=== PATIENT | female | born 1960 | race Caucasian/White ===

== ENCOUNTER → 2016-04-09 | Outpatient (CLI) | payer MEDICARE ==
[2013-11-18 18:15] VITALS: BP 106/67
[~2016-04-09] MED LIST: AMIT25TA PO; ASPI325T4 PO; ATOR20TA58 PO; BACL20TA PO; BUPR150T6 PO; BUPR1PAT TD; CA C1TAB28 PO; CALC-450 PO; CARB200T PO; CYAN10005 PO; CYCL10TA2 PO; DIAZ5TAB PO; DICY10CA53 PO; ESOM40CA PO; FAMO-63 PO; FENT1PAT21 TD; FENT1PAT91 TD; FLUT16SP NS; FOLI1TAB35 PO; GABA-586 PO; GABA800T2 PO; HYOS0.1264 PO; IOHEXOL 180 MG/ML 10 ML VIAL. ONE; IPRA4AER IH; LEVO125T5 PO; LEVO75TA PO; LORA10TA68 PO; LUTE20TA PO; MAGN400T3 PO; METH10TA2 PO; METH12DI SQ; MONT10TA6 PO; NITR0.4T SL; OXYC10TA PO; OXYC20TA PO; OXYC30TA PO; OXYM10TA PO; OXYM10TA28 PO; OXYM15TA PO; PANT40TA5 PO; PARO10TA24 PO; PREG300C PO; PROM25AM6 IJ; QUET50TA5 PO; QUET50TA8 PO; RANI150C PO; RESV50CA PO; SUCR1TAB29 PO; TEMA30CA6 PO; TIZA4CAP3 PO; UBID400C3 PO; Vitamin D 3; ZOLP10TA PO; methylPREDNISolone ACETATE 40 MG/ML VIAL. ONE; methylPREDNISolone ACETATE 80 MG/ML VIAL. ONE
--- NOTE | 2016-04-10 19:40 | PAIN ---
DATE OF SERVICE: 04/09/2016 DIAGNOSES: 1. Cervical radiculopathy with cervical degenerative disk disease. 2. Complex regional pain syndrome type 1, left lower extremity. 3. Lumbar radiculopathy. HISTORY OF PRESENT ILLNESS: The patient is a 56-year-old female who returns for followup status post medication management with both methadone and oxycodone, also with a spinal cord stimulator for complex regional pain syndrome of left lower extremity, and also for recent evaluation of cervicalgia and cervical radiculopathy in bilateral upper extremities, right greater than left. The patient reports that she did have a CT scan and indeed the results have shown significant degenerative disk disease at multiple levels in the cervical spine, mostly in the middle and lower distribution with some significant radiation of pain in upper extremities, again more on the right than the left, within the base of the neck, upper back, right posterior shoulder, left posterior shoulder, upper extremities, some weakness in the right hand and tingling in both hands and numbness. The patient reports she had been dropping items by both her hands, mostly with the right. ____ pain is rated anywhere from 4 to 7 on a scale of 10 in the neck and shoulders and upper extremities. The patient's lower extremities have been doing better. The patient reports that the stimulator is covering her left lower extremity in the leg and foot with good coverage and approximately 70-75% improvement in this region. The patient reports no new motor or sensory deficits, no new bowel or bladder incontinence or other complaints. PHYSICAL EXAMINATION: VITAL SIGNS: The patient's blood pressure is 138/82, pulse 78, respirations 18, temperature 98.1 degrees Fahrenheit, height is 5 feet 2 inches, weight is 209 pounds. GENERAL: The patient is awake, alert, oriented, appropriate, very pleasant demeanor. HEENT: Shows normocephalic, atraumatic. Extraocular movements are intact and symmetrical. Oral cavity shows mucous membranes are moist and pink. Dentition is intact. NECK: Shows anterior throat supple. CHEST: Shows normal on inspection. Breath sounds are clear to auscultation bilaterally. HEART: Shows S1 and S2 clear. ABDOMEN: Obese, soft, nontender, nondistended. No palpable organomegaly is noted. No rebound or guarding demonstrated. BACK: Shows spine grossly in midline. Well-healed surgical scarring is noted with spinal cord stimulator easily palpable over the right gluteus without tenderness. The patient's neck shows inferior aspect of the cervical paraspinous musculature with some moderate tenderness with palpation and significant sore and tender paraspinous musculature in the thoracic distribution in the upper, middle distribution and in the rhomboid musculature as well; very firm, very tender without specific trigger points or asymmetry, but very firm and tender with increased muscle girth bilaterally. EXTREMITIES: Upper extremities show deep tendon reflexes at 2+ in the biceps and triceps tendons. Motor exam is approximately 4 on a scale of 5 with linotype operator strength on the right and 5/5 on the left. Bicep and tricep flexion is 4/5 and equal bilaterally. Options were discussed with the patient. The patient's old chart was reviewed as her current medication regimen and updated. Current review of systems updated today as well. We will proceed with a cervical epidural steroid injection today with fluoroscopic guidance. Risks were again discussed including, but not limited to bleeding, infection, possibility of epidural hematoma and subsequent neurological compromise, dural puncture, headaches, spinal cord and/or nerve damage, side effects of steroid medication and poor results regarding pain control. The patient understands and wishes to proceed. The patient also given refill prescription for oxycodone 10 mg and was given instruction as well as side effects to be aware of with the medication, also with the procedure today. We discussed the potential side effects following and warning signs to look for in case of epidural hematoma, etc. The patient will return to clinic in approximately 6 weeks as scheduled for routine followup and reassessment at that time. The patient was counseled as to her medications and activity level as well as side effects to be aware of. DIAGNOSIS: Cervical radiculopathy with cervical degenerative disk disease. PROCEDURE: Cervical epidural steroid injection using C-arm fluoroscopic guidance in translaminar approach at the C6-C7 level with local anesthetic. Medications injected 120 mg of Depo-Medrol 120 mg plus 5 mL of preservative-free normal saline and 2 mL of Isovue contrast. CONDITION AT DISCHARGE: Stable. The patient tolerated the procedure well, had no complications. KENY MCCLENDON MD DR: GREG/arymon JOB#: [id number] / [id number]
== END | disposition home or self-care (01) ==
LOC: PNCL 13:55
PROVIDERS: ATTEND Anesthesiology
DX: M50.123 Cervical disc disorder at C6-C7 level with radiculopathy (principal); M79.605 Pain in left leg; M54.16 Radiculopathy, lumbar region; J44.9 Chronic obstructive pulmonary disease, unspecified; Z90.49 Acquired absence of other specified parts of digestive tract; E66.9 Obesity, unspecified; Z90.710 Acquired absence of both cervix and uterus; E03.9 Hypothyroidism, unspecified; F32.9 Major depressive disorder, single episode, unspecified; F17.200 Nicotine dependence, unspecified, uncomplicated
CPT/HCPCS: 62321; J1030; J1040

== ENCOUNTER → 2016-05-20 | Outpatient (CLI) | payer MEDICARE ==
[2013-11-18 18:15] VITALS: BP 106/67
[~2016-05-20] MED LIST changes: -IOHEXOL 180 MG/ML 10 ML VIAL. ONE; -methylPREDNISolone ACETATE 40 MG/ML VIAL. ONE; -methylPREDNISolone ACETATE 80 MG/ML VIAL. ONE
--- NOTE | 2016-05-21 05:01 | PAIN ---
DATE OF SERVICE: 05/20/2016 PROGRESS NOTE DIAGNOSES: 1. Complex regional pain syndrome type 1, left lower extremity. 2. Cervical radiculopathy with cervical degenerative disk disease. 3. Lumbar radiculopathy. HISTORY OF PRESENT ILLNESS: The patient is a 56-year-old female who returns for followup status post medication management with both methadone and oxycodone as well as Lyrica and Lidoderm patches. The patient returns reporting she is doing fairly well with about 75% improvement with the medications. She did undergo a cervical epidural steroid injection after the last visit and reports significant pain relief about 80% for about 2 weeks, and the pain returned in the base of the neck and shoulders. The patient reports still some significant pain in the left leg and foot as she has had previously, although her stimulator is working quite well. She is very pleased with it with about 50% improvement in the left foot and leg pain from her complex regional pain syndrome. The patient reports her pain is anywhere from 3-7 on a scale of 10, 7 in the low back, 5-7 in the neck, and 3-4 in the left leg. The patient reports no new motor or sensory deficits, no new bowel or bladder incontinence or other complaints. She is doing well with her medications. No significant side effects with methadone or oxycodone. She is using them very sparingly and does not require refills of the oxycodone today, just the methadone. The patient has had appropriate K-TRACS reporting to date and appropriate urinalysis to date as well. PHYSICAL EXAMINATION: VITAL SIGNS: The patient's blood pressure is 107/64, pulse 73, respirations 18, temperature 98.0 degrees Fahrenheit, weight is 202 pounds. GENERAL: The patient is awake, alert, oriented, appropriate, has a very pleasant demeanor. HEENT: Head shows normocephalic, atraumatic. Extraocular movements are intact and symmetrical. Oral cavity, mucous membranes are moist and pink. Dentition is intact. NECK: Shows anterior throat supple without palpable lymphadenopathy noted. Swallow reflex is symmetrical. CHEST: Normal on inspection. Breath sounds are clear to auscultation bilaterally. HEART: Shows S1 and S2 clear. ABDOMEN: Soft, obese, nontender, nondistended. No palpable organomegaly is noted. No rebound or guarding demonstrated. BACK: The patient's back shows spine grossly in midline. Slight exaggeration of thoracic kyphosis and mild flattening of lumbar lordotic curvature. Previous surgical scars noted from stimulator placement. Spinal cord stimulator battery is easily palpable over the right gluteus and nontender. The patient's lower extremities show left leg with significant scarring over the anterior aspect of the foot and ankle with some mild bluish discoloration today, but very mild in affect compared to previous exams and is warm to touch compared to the right leg without significant edema, no specific allodynia except over the very superior aspect of the anterior foot at the junction of the ankle anteriorly only. Peripheral pulses are 2+ in the posterior tibial and dorsalis pedis pulses bilaterally. Options were discussed with the patient. The patient's old chart was reviewed and her current medication regimen updated. Current review of systems updated today as well, and we will refill patient's methadone; instructions, side effects to be aware of. The patient will follow up in approximately 2 months as scheduled. She will be eligible for refill on her oxycodone at that time; she is using it again only very sparingly. The patient will maintain stimulation with her spinal cord stimulator and battery charge on this as well. We discussed potential interventional techniques with her back and neck, and she would like to wait on this. We will try Medrol Dosepak in the meantime with instructions, side effects to be aware of discussed as well. The patient will follow up as scheduled. KENY MCCLENDON MD DR: GREG/raymon JOB#: [id number] / [id number]
== END | disposition home or self-care (01) ==
LOC: PNCL 13:06
PROVIDERS: ATTEND Anesthesiology
DX: G90.522 Complex regional pain syndrome I of left lower limb (principal); M54.16 Radiculopathy, lumbar region; M54.12 Radiculopathy, cervical region
CPT/HCPCS: G0463

== ENCOUNTER → 2016-06-30 | Outpatient (CLI) | payer MEDICARE ==
[2013-11-18 18:15] VITALS: BP 106/67
[~2016-06-30] MED LIST changes: +CETI10TA22 PO; +ESCI10TA PO; +IOHEXOL 180 MG/ML 10 ML VIAL. ONE; +TRAM50TA PO; +methylPREDNISolone ACETATE 40 MG/ML VIAL. ONE; +methylPREDNISolone ACETATE 80 MG/ML VIAL. ONE
--- NOTE | 2016-07-01 03:53 | PAIN ---
DATE OF SERVICE: 06/30/2016 PROGRESS NOTE FOR PAIN CLINIC DIAGNOSES: 1. Complex regional pain syndrome type 1, left lower extremity. 2. Cervical radiculopathy with cervical degenerative disk disease. 3. Lumbar radiculopathy. HISTORY OF PRESENT ILLNESS: This is a 56-year-old female who returns for followup status post cervical epidural steroid injection in April this year, also with spinal cord stimulator for her left lower extremity complex regional pain syndrome. The patient reports the stimulator is doing fairly well with the leg, but is wondering if it can be adjusted to cover some of the low back, as she has some pain there also with her radicular qualities and the low back pain. We will contact [facility] and help her arrange this. Otherwise, the patient reports some increase in pain in the base of the neck and right upper extremity. She has had previously did very well after cervical injection in April this year. The pain is now returning in the base of the neck, right shoulder, right upper extremity with some radiating shooting pain, tingling, burning and stabbing in the right arm as well. The patient reports that her left foot; however, is doing much better. It is fairly stable, it is not turning purple as often, although it still does this with cooler temperatures, which we have had some recently in the weather, but otherwise she is doing fairly well with it. Still using wheelchair for most of her longer traveling and is in a wheelchair again today. PHYSICAL EXAMINATION: VITAL SIGNS: The patient's blood pressure 126/82, pulse 81, respirations are 20, temperature 97.6 Fahrenheit, height is 5 feet 3 inches, weight 201 pounds. GENERAL: The patient is awake, alert, oriented, appropriate, very pleasant demeanor. HEENT: Head shows normocephalic, atraumatic. Extraocular movements are intact, symmetrical. Oral cavity, mucous membranes are moist and pink. Dentition is intact. NECK: Shows anterior throat supple without palpable lymphadenopathy noted. Swallow reflex is symmetrical. Neck shows full rotational motion with some minor tenderness in the right anterior aspect of the neck and trapezius with extension, but not with forward flexion. CHEST: Shows normal on inspection. Breath sounds are clear to auscultation bilaterally. HEART: Shows S1 and S2 clear. ABDOMEN: Soft, nontender, nondistended. No palpable organomegaly. No rebound or guarding demonstrated. BACK: The patient's back shows spine grossly in the midline. Some mild flattening of lumbar lordotic curvature and some moderate tenderness with palpation throughout the lumbar paraspinous muscles. Cervical paraspinous muscle shows symmetrical with inspection. On palpation, it is mildly tender to palpation, more on the right than the left superior medial and lateral trapezius, but without atrophy, hypertrophy. The patient shows good rotational motion of cervical spine including extension and flexion with some minor tenderness with extension again only on the right side of the inferior aspect of the cervical spine and shoulder. EXTREMITIES: The patient's upper extremities show deep tendon reflexes 2+ in the biceps and triceps tendons. Motor exam is strong with supervisor sound technician strength rated at 5/5 as is biceps and triceps flexion. Options were discussed with the patient. The patient's old chart was reviewed as her current medication regimen updated. Current review of systems updated today as well. We will proceed with a second cervical epidural steroid injection today with fluoroscopic guidance. Risks were again discussed including, but not limited to bleeding, infection, possibility of epidural hematoma and subsequent neurologic compromise, dural puncture, headaches, spinal cord and/or nerve damage, side effects of steroid medication and poor results regarding pain control. The patient understands and wishes to proceed. The patient will return to clinic in approximately 2 weeks for followup. She was counseled as to return appointment, activity level and side effects to be aware of. The patient also was questioning with her methadone and oxycodone, as she seems to be developing some physiologic tolerance to the medications. We discussed this in some detail today and we will change it to Opana IR at 15 mg every 12 h. and will substitute tramadol for the oxycodone at 15 mg every 4-6 hours on a p.r.n. basis. The patient was given instruction as well as side effects to be aware of each of the medications. Also once again we will contact the [facility] for help in reprogramming and reassessing her spinal cord stimulator in the meantime as well. The patient will follow up in approximately 4 weeks or sooner if necessary, was counseled as to activity levels as well as side effects to be aware of. DIAGNOSIS: Cervical radiculopathy with cervical degenerative disk disease. PROCEDURE: Cervical epidural steroid injection in translaminar approach at the C6-C7 level using C-arm fluoroscopic guidance under sterile prep and drape using local anesthetic. MEDICATION INJECTED: 120 of mg Depo-Medrol plus 5 mL of preservative-free normal saline and 2 mL of Isovue contrast. CONDITION AT DISCHARGE: Stable. The patient tolerated the procedure well, had no complications. KENY MCCLENDON MD DR: GREG/raymon JOB#: [id number] / [id number]
== END | disposition home or self-care (01) ==
LOC: PNCL 11:15
PROVIDERS: ATTEND Anesthesiology
DX: M50.123 Cervical disc disorder at C6-C7 level with radiculopathy (principal); J44.9 Chronic obstructive pulmonary disease, unspecified; E66.9 Obesity, unspecified; E03.9 Hypothyroidism, unspecified; F32.9 Major depressive disorder, single episode, unspecified; Z72.0 Tobacco use; Z98.51 Tubal ligation status; Z90.49 Acquired absence of other specified parts of digestive tract; Z90.710 Acquired absence of both cervix and uterus
CPT/HCPCS: 62321; J1030; J1040

== ENCOUNTER → 2016-08-12 | Outpatient (CLI) | payer MEDICARE ==
[2013-11-18 18:15] VITALS: BP 106/67
[~2016-08-12] MED LIST changes: -ASPI325T4 PO; +ASPI325T8 PO; -BUPR1PAT TD; +BUPR1PAT7 TD; -ESCI10TA PO; +ESCITALOPRAM OX10 MG PO; -IOHEXOL 180 MG/ML 10 ML VIAL. ONE; -PARO10TA24 PO; +PARO10TA57 PO; -SUCR1TAB29 PO; +SUCR1TAB35 PO; -methylPREDNISolone ACETATE 40 MG/ML VIAL. ONE; -methylPREDNISolone ACETATE 80 MG/ML VIAL. ONE
--- NOTE | 2016-08-13 02:12 | PAIN ---
DATE OF SERVICE: 08/12/2016 DIAGNOSES: 1. Complex regional pain syndrome type 1, left lower extremity. 2. Cervical radiculopathy with cervical degenerative disk disease. 3. Lumbar radiculopathy. HISTORY OF PRESENT ILLNESS: The patient is a 56-year-old female who returns for followup status post medication management with both methadone and Opana. The patient discontinued her pain Opana as she reports she is no longer wishing to take this. She is having some difficulty with controlling her pain and finds that the methadone does work better and continues to take it. The patient is taking oxycodone, but only very sparingly, also taking Lyrica for pain and has been trying to decrease her narcotic consumption and we have been trying to help her with this, but she is still having significant pain in her left lower extremity as well as in her neck and shoulders. She did do well after cervical epidural steroid injection, which was 06/30/2016, for about 3 weeks with decreased pain significantly in the neck and shoulders as well as her upper extremities. The patient reports the pain is returning now, but not quite to its baseline level. The patient reports no new motor or sensory deficits, no new bowel or bladder incontinence or other complaints. Reports the pain she is having is tingling, burning, stabbing, shooting, sharp, aching, radiating, constant, it can be severe and unbearable, mostly in the left leg, but also in the base of the neck and shoulders, but again is better after last injection. The patient reports her pain as a 9 on a scale of 10 at its worse, is a 4 scale of 10 at least. She has been on a very stable regimen for medication thus far. The patient reports she does have difficulty sleeping at night because of the left leg, although better than it was. She says she has to reposition through the night several times. PHYSICAL EXAMINATION: VITAL SIGNS: The patient's blood pressure 121/69, pulse 71, respirations 18, temperature 98.1 degrees Fahrenheit. Weight is 204 pounds. GENERAL: The patient is awake, alert, oriented, appropriate, very pleasant demeanor. HEENT: Head shows normocephalic, atraumatic. Extraocular movements are intact and symmetrical. Oral cavity shows mucous membranes are moist and pink. Dentition is intact. NECK: Shows anterior throat supple without palpable lymphadenopathy noted. Swallow reflex is symmetrical. CHEST: Shows normal on inspection. Breath sounds are clear to auscultation bilaterally. HEART: Shows S1 and S2 clear. ABDOMEN: Soft, nontender, nondistended. No palpable organomegaly noted. No rebound or guarding demonstrated. BACK: Shows spine grossly midline. Slight exaggeration of thoracic kyphosis and mild flattening of lumbar lordotic curvature. Lumbar paraspinous musculature shows only very mild tenderness to palpation. Cervical paraspinous muscle shows moderate tenderness with deep palpation in the inferior aspect of the cervical paraspinous muscles as well as superior medial trapezius with palpation slightly more tender on the right than the left, but is roughly symmetrical. The patient shows good rotational motion of cervical spine with mild tenderness with extension, but not with forward flexion or right and left lateral rotation. EXTREMITIES: Upper extremities showed deep tendon reflexes at 2+ in the biceps and triceps tendons. Reports Developer strength is strong with 5/5 padder cushion as well as biceps and triceps flexion and are symmetrical. Lower extremities shows left lower extremity with good ____ symmetrical and equal to the right leg without as much bluish discoloration as has been present on previous exam. Well-healed surgical scar is noted on the anterior aspect of the top of the foot. There is some mild edema on the left ankle only, but no pitting and is moderately tender even to light touch. There was some very mild allodynia noted on the top of the foot, but good dorsiflexion and extension, which is somewhat guarded, but intact. The patient reports only mild pain with performing this and she is using a wheelchair again today. Options were discussed with the patient and the patient's old chart was reviewed as her current medication regimen and updated. Current review of systems updated today as well and will be due for refill of methadone in approximately 3 weeks as well as Lyrica and we will continue with decreasing her oxycodone requirements daily as possible. Again, the patient has been on a very stable regimen, has had appropriate K-TRACS reporting to date and appropriate urinalysis to date as well. We will have her follow up in approximately 3 weeks. ____ once again she brought back her Opana extended release prescription as she did not fill it and we will discard it for her and continue working on decreasing her narcotic requirements as time goes. KENY MCCLENDON MD DR: Rula JOB#: [id number] / [id number]
== END | disposition home or self-care (01) ==
LOC: PNCL 11:12
PROVIDERS: ATTEND Anesthesiology
DX: G90.522 Complex regional pain syndrome I of left lower limb (principal); M50.10 Cervical disc disorder with radiculopathy, unspecified cervical region
CPT/HCPCS: G0463

== ENCOUNTER → 2016-09-11 | Outpatient (CLI) | payer OTHER, MEDICARE ==
[2013-11-18 18:15] VITALS: BP 106/67
[~2016-09-11] MED LIST changes: +IOHEXOL 180 MG/ML 10 ML VIAL. ONE; +methylPREDNISolone ACETATE 40 MG/ML VIAL. ONE; +methylPREDNISolone ACETATE 80 MG/ML VIAL. ONE
== END | disposition home or self-care (01) ==
LOC: PNCL 11:42
PROVIDERS: ATTEND Anesthesiology
DX: M50.10 Cervical disc disorder with radiculopathy, unspecified cervical region (principal); J44.9 Chronic obstructive pulmonary disease, unspecified; E66.9 Obesity, unspecified; F41.9 Anxiety disorder, unspecified; E03.9 Hypothyroidism, unspecified; Z68.43 Body mass index [BMI] 50.0-59.9, adult; Z86.69 Personal history of other diseases of the nervous system and sense organs; Z90.49 Acquired absence of other specified parts of digestive tract; Z98.51 Tubal ligation status; Z90.710 Acquired absence of both cervix and uterus; Z87.39 Personal history of other diseases of the musculoskeletal system and connective tissue; Z86.39 Personal history of other endocrine, nutritional and metabolic disease; Z72.0 Tobacco use; Z88.1 Allergy status to other antibiotic agents; Z88.0 Allergy status to penicillin
CPT/HCPCS: 62321; J1030; J1040

== ENCOUNTER → 2016-11-06 | Outpatient (CLI) | payer OTHER, MEDICARE ==
[2013-11-18 18:15] VITALS: BP 106/67
[~2016-11-06] MED LIST changes: -IOHEXOL 180 MG/ML 10 ML VIAL. ONE; -methylPREDNISolone ACETATE 40 MG/ML VIAL. ONE; -methylPREDNISolone ACETATE 80 MG/ML VIAL. ONE
--- NOTE | 2016-11-06 21:43 | PAIN ---
DATE OF SERVICE: 11/06/2016 PROGRESS NOTE DIAGNOSES: 1. Complex regional pain syndrome type 1, left lower extremity. 2. Cervical radiculopathy with cervical degenerative disk disease. HISTORY OF PRESENT ILLNESS: The patient is a 56-year-old female who returns for followup status post medication management with both methadone and tramadol, also baclofen. The patient reports she has been doing fairly well at this visit, was trying to get off methadone, we have weaning her down to some extent, which she is taking only 1-2 a day now, would like to try weaning further, taking the tramadol up to 3-4 times a day, which does help take the edge off. She has had no side effects from either one of the medications, but would like to very much get off methadone if possible. The patient reports still significant pain in the base of the neck, upper back, mid back, low back, right hip and left lower extremity. The patient with spinal cord stimulator for her complex regional pain syndrome in the left leg with very good results of this. The patient reports she is no longer having difficulty charging the battery and has good coverage in the left leg. She reports the pain in the base of the neck and shoulders, aching, sharp, shooting, stabbing, burning, tingling, severe, constant, radiating, unbearable, rates a 10 on a scale of 10 at its worst, 3 at its least and 4 on a scale of 10 today and on average. The patient reports no new motor or sensory deficits, no new bowel or bladder incontinence or other complaints. PHYSICAL EXAMINATION: VITAL SIGNS: Blood pressure 116/75, pulse 77, respirations 20, temperature 98.2 degrees Fahrenheit, weighs 199 pounds. GENERAL: The patient is awake, alert, oriented, appropriate, very pleasant demeanor. HEENT: Shows normocephalic, atraumatic. Extraocular movements are intact and symmetrical. Oral cavity shows mucous membranes moist and pink. Dentition is intact. NECK: Shows anterior throat supple without palpable lymphadenopathy noted. Swallow reflex is symmetrical. CHEST: Shows normal on inspection. Breath sounds are clear to auscultation bilaterally. HEART: Shows S1, S2 clear. ABDOMEN: Obese, soft, nontender, nondistended. No palpable organomegaly is noted. No rebound or guarding demonstrated. BACK: Shows spine grossly in midline with normal thoracic kyphosis and some mild flattening of lumbar lordotic curvature. The patient has well-healed surgical scarring noted in the lumbar distribution and easily palpable spinal cord stimulator over the right gluteus. Lower extremities show deep tendon reflexes at 1+ in the patellar and tendo calcaneus tendons. The patient has well-healed surgical scar over the anterior aspect of the left foot with some mild mottling noted today, but significant purple discoloration. Foot is warm to the touch compared to the right. The patient is not wearing any shoes and socks as she is more comfortable without these, but it is pink and warm without significant allodynia, only for some very mild allodynia on the anterior surface of the foot near the scar. Peripheral pulses are 2+ at the posterior tibial and dorsalis pedis pulses bilaterally. No peripheral edema is noted. PLAN: Options were discussed with the patient. The patient's old chart was reviewed as her current medication regimen and updated. Current review of systems updated today as well. We will refill the patient's tramadol, but we will change the methadone to oxycodone at 20 mg as she is breaking these in half. We will try this first as she did have some nausea when we have used this in the past; however, we would like to try this again as she is getting some better analgesia and again would like to get away from methadone. Also substitute Zanaflex in place of the baclofen. The patient was given instructions as well as side effects to be aware of each of the medications as well as maintenance with her spinal cord stimulator and will follow up in approximately 4 weeks or sooner if necessary. KENY MCCLENDON MD DR: GREG/raymon JOB#: [id number] / [id number]
== END | disposition home or self-care (01) ==
LOC: PNCL 11:40
PROVIDERS: ATTEND Anesthesiology
DX: M50.10 Cervical disc disorder with radiculopathy, unspecified cervical region (principal); G90.522 Complex regional pain syndrome I of left lower limb
CPT/HCPCS: G0463

== ENCOUNTER → 2017-03-25 | Outpatient (CLI) | payer OTHER, MEDICARE | END | disposition home or self-care (01) | LOC: PNCL 13:02 | DX: M54.12 Radiculopathy, cervical region (principal); M54.16 Radiculopathy, lumbar region; G90.522 Complex regional pain syndrome I of left lower limb; M79.672 Pain in left foot; M25.511 Pain in right shoulder | CPT/HCPCS: 99212 ==

== ENCOUNTER → 2017-06-04 | Outpatient (CLI) | payer OTHER, MEDICARE | END | disposition home or self-care (01) | LOC: PNCL 11:31 | DX: M50.10 Cervical disc disorder with radiculopathy, unspecified cervical region (principal); G90.522 Complex regional pain syndrome I of left lower limb | CPT/HCPCS: 99212 ==

== ENCOUNTER → 2017-09-07 | Outpatient (CLI) | payer OTHER, MEDICARE | END | disposition home or self-care (01) | LOC: PNCL 11:33 | DX: M50.10 Cervical disc disorder with radiculopathy, unspecified cervical region (principal); G90.522 Complex regional pain syndrome I of left lower limb; J44.9 Chronic obstructive pulmonary disease, unspecified; E03.9 Hypothyroidism, unspecified | CPT/HCPCS: 99212 ==

== ENCOUNTER → 2017-12-21 | Outpatient (CLI) | payer OTHER, MEDICARE ==
[2013-11-18 18:15] VITALS: BP 106/67
[~2017-12-21] MED LIST changes: +BUPR200T2 PO; +LEVO5TAB29 PO; +NAPR220C4 PO
--- NOTE | 2017-12-21 23:14 | PAIN ---
DATE OF SERVICE: 12/21/2017 PROGRESS NOTE FOR PAIN CLINIC DIAGNOSES: 1. Complex regional pain syndrome type 1, left lower extremity. 2. Cervical radiculopathy with cervical degenerative disk disease. 3. Lumbar radiculopathy. HISTORY OF PRESENT ILLNESS: The patient is a 57-year-old female who returns for followup status post medication management with both methadone and tramadol and also taking Zanaflex and Lyrica. The patient also with a spinal cord stimulator for her complex regional pain syndrome in the left leg. The patient reports it is working about 85%-90% of the pain in her foot as being decreased from the spinal cord stimulation, however. Since the weather has gotten slightly cooler in the last few weeks, she has had increased burning pain in her lower extremity as well. The patient does have an appointment to follow up with her spinal cord stimulator airline security representative to have it reprogrammed here within the next week or two. The patient reports her pain is a 10 on a scale of 10 at its worst, average and at its least and is a 10 on scale of 10 today, sharp, shooting, tingling, burning, cramping, stabbing, radiating, constant, becoming more severe, more unbearable, worse with weightbearing, standing, walking especially with her left leg and foot but again at rest, the stimulator is taking care of most pain about 90%. The patient had some family issues, was unable to return for her refill by about 1 week and she has been out of her methadone, still taking the tramadol, so she has had no withdrawal but has had significantly increased pain in the last week secondary to this. The patient reports no side effects with the medication and no new motor or sensory deficits or other complaints. PHYSICAL EXAMINATION: VITAL SIGNS: The patient's blood pressure 136/78, pulse 103, respirations 18, temperature 98.2 degrees Fahrenheit, height 5 feet 3 inches and weight is 190 pounds. GENERAL: The patient is awake, alert, oriented, appropriate and very pleasant demeanor. HEENT: Head is normocephalic and atraumatic. Extraocular movements are intact and symmetrical. Oral cavity: Mucous membranes moist and pink. Dentition is intact. NECK: Shows anterior throat supple without palpable lymphadenopathy noted. Swallow reflex is symmetrical. CHEST: Shows normal on inspection. Breath sounds clear to auscultation bilaterally. No rales, rhonchi or wheezes. HEART: Shows S1 and S2 clear. ABDOMEN: Soft, obese, nontender and nondistended. No palpable organomegaly is noted. BACK: Shows spine grossly in the midline with some increased thoracic kyphosis. Minor flattening of the lumbar lordotic curvature. Paraspinous muscle shows symmetrical throughout the thoracic and lumbar distributions. With palpation shows some mild tenderness over the lumbar paraspinous musculature, mainly in the lower lumbar distribution, which is very firm and tight but without specific trigger points, without radiation. EXTREMITIES: The patient's lower extremities show deep tendon reflexes at 1+ in the patellar tendons bilaterally. The patient without shoes on her left foot. It is uncomfortable for her to wear these, has well-healed surgical scar on the anterior aspect of the ankle and compared to the right, does not show any specific discoloration. There is some minor allodynia on the anterior top of the foot as well but only very mild with light touch on the left side, right side is negative. The patient's feet are essentially same temperature to touch on exam today as she has no shoes on either foot. Options were discussed with the patient. The patient's old chart was reviewed as well as her current medication regimen updated. Current review of systems updated today as well. She is scheduled to meet with the spinal cord stimulator airline security representative for reprogramming within the next week or so and we will refill the patient's medications. She has had appropriate K-TRACS reporting as well as appropriate urinalysis to date. We will renew her narcotic contract today as well. The patient was given a copy of this as well and a 90-day supply of the methadone as well as tramadol, Zanaflex and Lyrica with instructions, side effects to be aware of discussed with each one of her medications. She will follow up as scheduled. KENY MCCLENDON MD DR: GREG/raymon JOB#: [id number] / [id number]
== END | disposition home or self-care (01) ==
LOC: PNCL 14:38
PROVIDERS: ATTEND Anesthesiology
DX: G90.522 Complex regional pain syndrome I of left lower limb (principal); M50.10 Cervical disc disorder with radiculopathy, unspecified cervical region
CPT/HCPCS: G0463

== ENCOUNTER → 2018-03-15 | Outpatient (CLI) | payer OTHER ==
[2013-11-18 18:15] VITALS: BP 106/67
[~2018-03-15] MED LIST changes: +CYAN-25 PO; -CYAN10005 PO; -GABA-586 PO; +GABA300C18 PO; -GABA800T2 PO; +GABA800T5 PO; +MONT10TA49 PO; -MONT10TA6 PO; -OXYC30TA PO; +OXYC30TA3 PO; -PANT40TA5 PO; +PANT40TA77 PO; -QUET50TA8 PO; +QUET50TA9 PO
--- NOTE | 2018-03-15 17:45 | PAIN ---
DATE OF SERVICE: 03/15/2018 DIAGNOSES: 1. Complex regional pain syndrome type 1, left lower extremity, with spinal cord stimulator therapy. 2. Lumbar radiculopathy. 3. Cervical radiculopathy with cervical degenerative disk disease. HISTORY OF PRESENT ILLNESS: The patient is a 57-year-old female who returns for followup status post spinal cord stimulator therapy as well as medication management with both methadone and tramadol. The patient reports she has been doing quite well, but on a stable regimen of this as patient is not opioid naive. She is doing quite well with the methadone 3 times a day, some days only twice a day, but days that she does needed 3 times a day, it does take care of the pain significantly. The patient reports about an 80% or better improvement with the methadone and she is having some significant increase in low back pain recently, but the left leg is doing better. The patient is scheduled for spinal cord stimulator reevaluation today as well and reprogramming, which will be performed by our [facility] today while she is at her visit as well. The patient reports the pain is in the low back, left lower extremity, left foot especially, aching, sharp, dull, tight, shooting, cramping, stabbing, tingling, burning, severe, unbearable at times, radiating, becoming more constant in the left leg and foot as well as the low back and mid back with some myofascial complaints here as well. The patient reports pain is an 8 on a scale of 10 at its worst, 8 on average, 5 at its least and is an 8 today. The patient reports no new motor or sensory deficits. No new bowel or bladder incontinence. The patient reports it does awaken her from sleep about every 3 hours or so at night in the low back, mainly more than the leg. PHYSICAL EXAMINATION: VITAL SIGNS: The patient's blood pressure is 135/79, pulse 99, respirations are 18, temperature 98.2 degrees Fahrenheit, height 5 feet 3 inches, weight is 203 pounds. GENERAL: The patient is awake, alert, oriented, appropriate, very pleasant demeanor. HEENT: Shows normocephalic, atraumatic. Extraocular movements are intact and symmetrical. Oral cavity: Mucous membranes moist and pink. Dentition is intact. NECK: Shows anterior throat supple without palpable lymphadenopathy noted. Swallow reflex is symmetrical. CHEST: Shows normal on inspection. Breath sounds are clear to auscultation bilaterally. HEART: Shows S1, S2 clear. No murmurs auscultated. ABDOMEN: Obese, soft, nontender, nondistended. No palpable organomegaly is noted. There is no rebound or guarding demonstrated. BACK: Shows spine grossly in the midline, slight exaggeration of thoracic kyphosis. Well-healed surgical scarring is noted in the lumbar distribution and spinal cord stimulator is easily palpable on the right posterior hip, which is nontender. Well-healed surgical scar is there as well. The patient shows good rotational motion of the lumbar spine. There is moderate tenderness at the superior aspect of the lumbar paraspinal as well as the mid to low thoracic paraspinous musculature, firm musculature, tender with palpation, but without specific trigger points or atrophy, hypertrophy and no radiation of pain. The patient has good rotational motion of lumbar spine, thoracic spine as well without significant difficulty. EXTREMITIES: The patient's lower extremities show left lower extremity compared to right. The patient is not wearing a sock or a shoe on the left foot, but is pink in color today consistent with right foot on comparison. Well-healed surgical scaring is noted on the anterior aspect of the top of the foot, still some allodynia with palpation over the anterior aspect as well as the lateral ankle on the left. The patient has new scarring on the left fifth toe and she reports about 2 months ago, she did stumble at home and broke her toe and also was lacerated which was repaired, but did exacerbate the pain in the foot significantly. Again, the patient will have spinal cord stimulator reprogramed today to try and cover this as well as some back pain. Options were discussed with the patient. The patient's old chart was reviewed as was her current medication regimen updated. Current review of systems is updated today as well. We will refill the patient's methadone as well as tramadol as the patient is not opioid na?ve and has done quite well with the methadone with 75%-80% improvement without any side effects. The patient will be given a 2-month refill. She has had appropriate K-TRACS reporting as well as appropriate urinalysis to date and has been on very stable regimen of up to 2-3 times daily with the methadone and up to 4 times with the tramadol on a breakthrough basis, again with good results and pain control without significant side effects. The patient will be given new contract for narcotic as this is the first of the year and the patient has had appropriate urinalysis to date as well. We will obtain that today as well on routine screening. The patient will follow up in approximately 2 months or sooner as necessary and again spinal cord stimulator will be reprogrammed at today's visit as well. KENY MCCLENDON MD DR: GREG/nts JOB#: [id number] / [id number]
== END | disposition home or self-care (01) ==
LOC: PNCL 12:57
PROVIDERS: ATTEND Anesthesiology
DX: M50.11 Cervical disc disorder with radiculopathy, high cervical region (principal); G90.522 Complex regional pain syndrome I of left lower limb; Z79.899 Other long term (current) drug therapy
CPT/HCPCS: G0463

== ENCOUNTER → 2018-08-16 | Outpatient (CLI) | payer OTHER ==
[2013-11-18 18:15] VITALS: BP 106/67
[~2018-08-16] MED LIST changes: -CYAN-25 PO; +CYAN10005 PO; +PANT40TA5 PO; -PANT40TA77 PO
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
== END | disposition home or self-care (01) ==
LOC: PNCL 14:00
PROVIDERS: ATTEND Anesthesiology
DX: G90.522 Complex regional pain syndrome I of left lower limb (principal); M50.10 Cervical disc disorder with radiculopathy, unspecified cervical region; E66.9 Obesity, unspecified
CPT/HCPCS: G0463

== ENCOUNTER → 2018-11-11 | Outpatient (CLI) | payer OTHER ==
[2013-11-18 18:15] VITALS: BP 106/67
[~2018-11-11] MED LIST changes: +CYAN-25 PO; -CYAN10005 PO; -PANT40TA5 PO; +PANT40TA77 PO
--- NOTE | 2018-11-12 13:43 | PAIN ---
DATE OF SERVICE: 11/11/2018 PROGRESS NOTE FOR PAIN CLINIC DIAGNOSES: 1. Complex regional pain syndrome type 1, left lower extremity with spinal cord stimulation therapy. 2. Cervical radiculopathy with cervical degenerative disk disease. 3. Lumbar radiculopathy. HISTORY OF PRESENT ILLNESS: The patient is a 58-year-old female, who returns for followup status post medication management as well as spinal cord stimulator therapy for her complex regional pain syndrome of the left lower extremity foot and ankle. The patient had originally in 2012 injury where she stepped backwards off a 6-foot step onto some concrete fracturing her left ankle and foot, had a surgical repair of this and had developed complex regional pain syndrome, left foot. After several years, eventually a spinal cord stimulator was placed. She has been on medication management since that time with methadone and tramadol currently as well as Lyrica. The patient reports that all these are helping significantly. She does not have any side effects from the medications and reports that she is still having significant pain. Most recently about 3 weeks ago, she dropped a 20-pound brisket and metal pin on her left foot when she was cooking at home with a new fracture by her report from using local medical office where she resides near [place], [place]. The patient reports significant increase in pain and has an x-ray report showing some demineralization of the bones of the foot as well as the anterior tibia and previous surgical instrumentation present. The patient reports the pain is slightly improved over the past 3 weeks, but still significantly painful with any weightbearing, he is in hard splint currently and is waiting to see patient relations specialist regarding the foot. The patient reports stimulator is doing well, however, with good coverage and good paraesthesia into the left lower extremity in the low back as well. The patient reports no new motor or sensory deficits, no new bowel or bladder incontinence, no side effects with the medication. PHYSICAL EXAMINATION: VITAL SIGNS: The patient's blood pressure ____, pulse 105, respirations 18, temperature 97.9, height 5 feet 3 inches, and weight 202 pounds. GENERAL: The patient is awake, alert, oriented, appropriate, very pleasant demeanor. HEENT: Shows normocephalic, atraumatic. Extraocular movements are intact and symmetrical. Oral cavity: Mucous membranes moist and pink. Dentition is intact. NECK: Shows anterior throat supple without palpable lymphadenopathy noted. Swallow reflex symmetrical. CHEST: Shows normal on inspection. Breath sounds clear to auscultation bilaterally. HEART: Shows S1, S2 clear. No murmurs auscultated. ABDOMEN: Obese, soft, nontender, nondistended. No palpable organomegaly is noted. No rebound or guarding demonstrated. BACK: Shows spine grossly in the midline. Normal appearing thoracic kyphosis and lumbar lordotic curvature slightly flattened. EXTREMITIES: The patient's lower extremities show deep tendon reflexes at 1+ in the patellar tendons. Left foot is in a mobile hard splint. The right side shows full 5/5 dorsiflexion, extension, quadriceps and hamstring flexion; quadriceps and hamstring flexion 5/5 on the left dorsiflexion, extension was not measured on the left secondary to pain. He does have good sensation with significant allodynia over the anterior aspect of the foot showing a well-healed surgical scar on the top of the foot as well. No peripheral edema is noted, however, peripheral pulses are easily palpable at 1+ posterior tibial bilaterally. Options were discussed with the patient. The patient's old chart was reviewed as her current medication regimen updated. Current review of systems updated today as well. We will refer for orthopedic evaluation for the left distal ankle and foot as she is unable to seen an orthopedist for about 6 months in the area where she resides. We will make that referral. Also, refill the patient's methadone as well as tramadol for a 90-day supply, also Lyrica. The patient was given instructions on side effects to be aware of each of the medications. She had appropriate ____ has appropriate urinalysis to date as well. We will make this a 90-day supply with followup at that time or sooner if necessary. KENY MCCLENDON MD DR: GREG/raymon JOB#: [id number] / [id number]
== END ==
LOC: PNCL 14:05
PROVIDERS: ATTEND Anesthesiology
DX: G90.522 Complex regional pain syndrome I of left lower limb (principal); M54.16 Radiculopathy, lumbar region; M54.12 Radiculopathy, cervical region; M50.30 Other cervical disc degeneration, unspecified cervical region; F32.9 Major depressive disorder, single episode, unspecified; E03.9 Hypothyroidism, unspecified; E66.9 Obesity, unspecified; J44.9 Chronic obstructive pulmonary disease, unspecified; Z90.49 Acquired absence of other specified parts of digestive tract; Z90.710 Acquired absence of both cervix and uterus
CPT/HCPCS: G0463

== ENCOUNTER → 2019-03-16 | Outpatient (CLI) | payer OTHER ==
[2013-11-18 18:15] VITALS: BP 106/67
[~2019-03-16] MED LIST changes: +AMIT10TA PO; -CETI10TA22 PO; +CETI10TA24 PO; -MAGN400T3 PO; +MAGN400T5 PO; -NITR0.4T SL; +NITR0.4T24 SL
--- NOTE | 2019-03-17 00:11 | PAIN ---
DATE OF SERVICE: 03/16/2019 PROGRESS NOTE FOR PAIN CLINIC DIAGNOSES: 1. Complex regional pain syndrome, type 1, left lower extremity. 2. Cervical radiculopathy with cervical degenerative disk disease. 3. Lumbar radiculopathy. HISTORY OF PRESENT ILLNESS: The patient is a 58-year-old female who returns for followup status post medication management with both methadone and tramadol, also Lyrica. The patient reports she is doing very well with the medication and being on a stable regimen. She has some difficulty with car issues as well as weather issues and returning, but returns today reporting that she will be out of her medications actually by today or tomorrow and so this is timed out fairly well as far as getting her back for followup. The patient reports no new motor or sensory deficits, still significant pain in the low back and left foot and leg. Spinal cord stimulator is doing well. We are charging it every 5-8 days with good paresthesia and good decrease in pain on the left leg to a moderate extent. The patient reports the methadone and the tramadol helped significantly as well. Sometimes she breaks the methadone in half, but mostly she is taking 1 pill 3 times a day. The patient reports the tramadol helps her for breakthrough pain and she is using that about every 4-6 hours as well, again without side effects to medication and the patient reports her pain is a 10 on a scale of 10 at its worst over the past week, 8 on average, 5 at its least and is an 8 today. The patient rates it as a sharp, tight, shooting in the low back, in the left lower extremity, burning and stabbing and of course especially more noticeable in the upper back, neck and shoulders with radiating pain in the upper extremities bilaterally. This is becoming more constant, more severe, more unbearable, worse with repetitive motions of the upper extremities, raising her arms over her head or driving a car, using her upper extremities with any weightbearing capacity any repetitive motions. The patient reports some tingling in the fingers and hands, especially on the right hand and thumb and first finger. The patient reports no loss of motor function, but significant fatigability with the upper extremities, especially on the right side. The patient reports the pain does awaken her from sleep about 1-2 times at night. She can usually reposition and get back to sleep. PHYSICAL EXAMINATION: VITAL SIGNS: The patient's blood pressure is 133/90, pulse 116, respirations 18, temperature 97.8 degrees Fahrenheit. Height is 5 feet 3 inches. Weight is 214 pounds. GENERAL: The patient is awake, alert, oriented, appropriate, very pleasant demeanor. HEENT: Head shows normocephalic, atraumatic. Extraocular movements are intact and symmetrical. Oral cavity shows mucous membranes moist and pink. NECK: Shows anterior throat supple without palpable lymphadenopathy noted. Swallow reflex symmetrical. CHEST: Shows normal on inspection. Breath sounds are clear bilaterally. HEART: Shows S1 and S2 clear. ABDOMEN: Obese, soft, nontender, nondistended. BACK: Shows spine grossly in the midline. Cervical paraspinous muscle shows symmetrical on inspection with normal cervical lordotic curvature. With palpation, she has some moderate tenderness diffusely bilaterally in the middle and lower distribution of paraspinous musculature in the cervical distribution as well as into the right greater than the left cervical paraspinous musculature and trapezius musculature on the right side. Good rotational motion is maintained with cervical spine both laterally, greater than 45 degrees right and left as well as full extension and full forward flexion without significant discomfort reported. The patient's lower back shows a well-healed surgical scar from spinal cord stimulator placement, easily palpable stimulator over the gluteus with palpation. Paraspinous musculature shows some mild tenderness throughout the upper, middle and lower distribution of the paraspinous muscles in the lumbar distribution throughout, but without radiation. EXTREMITIES: The patient's upper extremities show deep tendon reflexes 2+ in the biceps and triceps tendons. Motor exam is strong with subscription agent strength rated at 5/5 left, 4/5 on the right. Shoulder shrug is strong and intact without loss of strength on resistance as is abduction of the shoulders is at 90 degrees without loss of strength with some moderate tenderness in the right shoulder and upper arm on the lateral deltoid. Options were discussed with the patient. The patient's old chart was reviewed as her current medication regimen updated. Current review of systems updated today as well. We will preauthorize the patient for a cervical epidural steroid injection. She has done very well with these in the past, most recently in 08/2016 with good decrease in pain about 75%-80% as she had a radicular pattern of pain again more on the right than the left upper extremity present bilaterally in the C6-C7 dermatomal distribution. We will preauthorize the patient for a C6-C7 translaminar cervical epidural steroid injection on her return. The patient's medications will be refilled today. She has had appropriate K-TRACS reporting as well as appropriate urinalysis to date. We will have a urinalysis done today for routine screening and will refill the patient's medication for a 90-day period. The patient will return to clinic in approximately 2 weeks and plan on cervical epidural steroid injection on return. KENY MCCLENDON MD DR: GREG/raymon JOB#: [id number] / [id number]
== END | disposition home or self-care (01) ==
LOC: PNCL 14:51
PROVIDERS: ATTEND Anesthesiology
DX: M50.10 Cervical disc disorder with radiculopathy, unspecified cervical region (principal); M47.816 Spondylosis without myelopathy or radiculopathy, lumbar region; G90.522 Complex regional pain syndrome I of left lower limb
CPT/HCPCS: G0463

== ENCOUNTER → 2019-07-13 | Outpatient (CLI) | payer MEDICARE, OTHER ==
[2013-11-18 18:15] VITALS: BP 106/67
[~2019-07-13] MED LIST changes: -LEVO75TA PO; +LEVO75TA90 PO
--- NOTE | 2019-07-13 15:24 | PAIN ---
DATE OF SERVICE: 07/13/2019 PROGRESS NOTE FOR PAIN CLINIC DIAGNOSES: 1. Complex regional pain syndrome type 1, left lower extremity. 2. Cervical radiculopathy with cervical degenerative disk disease. 3. Lumbar radiculopathy with lumbar degenerative disk disease. HISTORY OF PRESENT ILLNESS: The patient is a 59-year-old female who returns for followup status post medication management as well as spinal cord stimulator placement for her complex regional pain syndrome, left lower extremity. The patient also has cervical radiculopathy and has done well in the past with interventional techniques. We discussed repeating this if it needs preauthorization with her insurance provider, which we will obtain soon. The patient reports still significant pain in the base of neck and shoulders, especially on the right upper extremity radiating to the right shoulder, anterior bicep, into the forearm, into the thumb and first and second fingers with some numbness and tingling. The patient reports it is aching and dull in the neck and shoulder, sharp and shooting in the right arm, tingling and burning in the hand, stabbing pain in the neck and the hand, becoming more constant and severe with activity. The patient has been using her wheelchair, which is a manual wheelchair which she rolls with her arms and it is becoming more difficult with the right arm secondary to the pain. The patient reports it awakens her from sleep occasionally, but not every night, does not hurt, it is worse with weightbearing, repetitive motion such as using her wheelchair, driving, reaching over her head with her right hand as well. The patient reports no new motor or sensory deficits. PHYSICAL EXAMINATION: VITAL SIGNS: The patient's blood pressure 146/72, pulse 79, respirations 16, temperature 98.2 degrees Fahrenheit, weight is 216 pounds. GENERAL: The patient is awake, alert, oriented, appropriate, very pleasant demeanor. HEENT: Shows normocephalic, atraumatic. Extraocular movements are intact and symmetrical. Oral cavity shows mucous membranes moist and pink. Dentition is intact. NECK: Shows anterior throat supple without palpable lymphadenopathy noted. Swallow reflex symmetrical. CHEST: Shows normal on inspection. Breath sounds are clear bilaterally. No rales, rhonchi or wheezes. HEART: Shows S1, S2 clear. No murmurs auscultated. ABDOMEN: Obese, soft, nontender, nondistended. BACK: Shows spine grossly in the midline. Normal appearing thoracic kyphosis and flattening of lumbar lordotic curvature with well-healed surgical scar noted. Cervical paraspinous muscle shows symmetrical on inspection, on palpation shows some moderate tenderness diffusely bilaterally, but only diffusely without significant radiation. The patient shows good rotational motion of cervical spine, both laterally greater than 45 degrees closer to 90 degrees, some moderate pain with right lateral rotation, but without radiation. Minor pain with extension, but not with forward flexion, which is performed fully with good radiating into the cervical spine. EXTREMITIES: The patient's upper extremities show deep tendon reflexes 2+ in the biceps, triceps tendons. Motor exam is strong with director of accreditation strength about 4/5 on the right and 5/5 on the left, this is true with bicep and tricep flexion 4/5 right, 5/5 left as well. Peripheral pulses are 2+ radial. No peripheral edema is noted bilaterally. The patient's lower extremities show deep tendon reflexes at 1+ in the patellar and tendo calcaneus tendons. Motor exam is approximately 4/5 on the right and 3/5 on the left, but some significant discoloration of the left foot with well-healed surgical scarring noted about the ankle and anterior aspect of the foot, which is slightly more bluish in color compared to the right foot, but is not cold to the touch and there is a very mild allodynia on the anterior surface of the top of the foot as well as the medial ankle to light touch. Peripheral pulses however are 2+ bilaterally. PLAN: Options were discussed with the patient. The patient's old chart was reviewed as her current medication regimen updated. Current review of systems updated today as well. We will refill the patient's medication, methadone and hydromorphone with instructions, side effects to be aware of as well as Lyrica with instructions, side effects to be aware of. The patient has had appropriate K-TRACS reporting as well as appropriate urinalysis to date. We will make this a 2-month prescription with instructions, side effects to be aware of discussed with the patient regarding each of her prescription. The patient also with clinical radiculopathy at C6-C7 level on the right upper extremity and we will preauthorize the patient for cervical epidural steroid injection. She has done very well with these in the past at a translaminar level of C6-C7 for her radicular pain in the right arm. The patient will return to clinic in approximately 1 week and we will plan on cervical epidural steroid injection at that time. KENY MCCLENDON MD DR: GREG/raymon JOB#: [id number] / [id number]
== END ==
LOC: PNCL 13:46
PROVIDERS: ATTEND Anesthesiology
DX: G90.522 Complex regional pain syndrome I of left lower limb (principal); M50.10 Cervical disc disorder with radiculopathy, unspecified cervical region; M51.16 Intervertebral disc disorders with radiculopathy, lumbar region
CPT/HCPCS: G0463

== ENCOUNTER → 2019-10-27 | Outpatient (CLI) | payer MEDICARE, OTHER ==
[2013-11-18 18:15] VITALS: BP 106/67
--- NOTE | 2019-10-27 12:47 | PDOC ---
Progress Note - Pain Clinic Date of Service: DOS: DATE: 10/27/19 TIME: 12:41 Diagnosis: Dx: Complex regional pain syndrome type I left lower extremity Cervical radiculopathy with cervical degenerative disc disease Lumbar radiculopathy History or Present Illness: HPI: 59-year-old female returns follow-up status post medication management and spinal cord stimulator therapy for complex regional pain syndrome type I left lower extremity. Patient reports doing fairly well with about a 75% improvement with the medications and the spinal cord stimulator with her left lower extremity. Patient reports unfortunately walked into a piece of furniture with her barefoot on the left and cut the fifth toe does have a bandage on it today but otherwise been doing fairly well. Reports no new motor or sensory deficits no new bowel or bladder incontinence patient reports her stimulator is working well she is keeping a charge with good stimulation into the left lower extremity. Patient reports the pain in the left leg is a 10 on scale 10 is w orse over the past week 8 on average 6 its least is a 6 today describes as aching sharp and shooting stabbing tingling burning at times radiating constant with activity walking standing and can be severe but generally is well controlled with the medication. Patient which is sleeping well at night awakens her occasionally but only once or twice a night not every night. Reports some pain in the base the neck and the shoulders as well but fairly well controlled with the medication also. Patient reports no significant side effects with the medication currently. Physical Exam: VS: Blood pressure is 133/74 pulse 71 respirations 18 temperature 90.5 F height is 5 feet 3 inches PE: PHYSICAL EXAMINATION: GENERAL: The patient is awake, alert, oriented, appropriate, very pleasant demeanor HEENT: Shows normocephalic, atraumatic. Extraocular movements are intact and symmetrical. Oral cavity: Mucous membranes moist and pink. NECK: Shows anterior throat supple without palpable lymphadenopathy noted. Swallow reflex symmetrical. CHEST: Shows normal on inspection. Breath sounds are clear bilaterally, no rales rhonchi or wheezes auscultated. HEART: Shows S1, S2 clear. No murmurs auscultated. ABDOMEN: Soft, nontender, nondistended. No palpable organomegaly is noted. No rebound or guarding demonstrated. BACK: Shows spine grossly in the midline. Normal-appearing cervical lordotic curvature, neck shows full rotation motion cervical spine both laterally as well as extension flexion without significant increase in pain posterior cervical musculature shows moderately tender but diffusely only and symmetrical without evidence of atrophy hypertrophy. There is slightly increased thoracic kyphosis, some minor flattening of the lumbar lordotic curvature. Lumbar paraspinous muscles show symmetrical on inspection, on palpation shows some moderate te nderness diffusely throughout the upper, middle and lower distribution of the paraspinous muscles bilaterally and also into the lower thoracic paraspinous musculature, firm and tender, but without specific trigger points, without radiation of pain. The patient has good rotational motion of the lumbar spine, both laterally as well as extension and flexion without significant difficulty. No tenderness over the spinous processes, sacrum or sacroiliac regions. EXTREMITIES: Lower extremities show deep tendon reflexes 1+ in the patellar and tendo calcaneus tendons. Motor exam is 5 on a scale of 5 with right dorsiflexion, extension, quadriceps and hamstring flexion and 3/5 on the left. Peripheral pulses are 1+ posterior tibial. 1+ peripheral edema is noted on the left ankle but not on the right. Lower extremities are warm and dry to touch, left foot shows well-healed surgical scarring over the anterior aspect of the forefoot as well as the ankle with some mildly bluish discoloration compared to the right foot with some mild allodynia as well on the anterior and medial aspect of the forefoot in the arch of the foot. SKIN: Shows warm and dry, good turgor. Procedure: Procedure: Options discussed with the patient. We will refill patient's methadone as well as tramadol also Lyrica and Zanaflex with instructions side effects beware with each of the medications. Patient had appropriate K tract report as well as appropriate urinalyses to date we will have urinalysis taken today for routine screening as well. Patient will follow-up in approximately 2 months or sooner as necessary was counseled as to return appointment activity level and medication regimen as well as side effects beware. Medication Injected: Med Injected: None Condition at Discharge: Condition at Discharge: Condition at discharge is stable. KENY MCCLENDON MD Oct 27, 2019 12:47
== END | disposition home or self-care (01) ==
LOC: PNCL 11:01
PROVIDERS: ATTEND Anesthesiology
DX: M50.123 Cervical disc disorder at C6-C7 level with radiculopathy (principal); G90.522 Complex regional pain syndrome I of left lower limb; Z88.0 Allergy status to penicillin; Z88.8 Allergy status to other drugs, medicaments and biological substances; Z79.899 Other long term (current) drug therapy
CPT/HCPCS: G0463

== ENCOUNTER → 2020-02-08 | Outpatient (CLI) | payer MEDICARE, OTHER ==
[2013-11-18 18:15] VITALS: BP 106/67
[~2020-02-08] MED LIST changes: -CETI10TA24 PO; +CETI10TA74 PO; +FAMO20TA5 PO; +TIZA4TAB2 PO
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
== END | disposition home or self-care (01) ==
LOC: PNCL 13:23
PROVIDERS: ATTEND Anesthesiology
DX: G90.522 Complex regional pain syndrome I of left lower limb (principal); M50.10 Cervical disc disorder with radiculopathy, unspecified cervical region; J44.9 Chronic obstructive pulmonary disease, unspecified; E66.9 Obesity, unspecified; E03.9 Hypothyroidism, unspecified; Z90.49 Acquired absence of other specified parts of digestive tract; Z90.710 Acquired absence of both cervix and uterus; Z98.890 Other specified postprocedural states; Z98.51 Tubal ligation status; Z87.891 Personal history of nicotine dependence; Z79.82 Long term (current) use of aspirin; Z79.899 Other long term (current) drug therapy; Z88.0 Allergy status to penicillin; Z88.8 Allergy status to other drugs, medicaments and biological substances; Z88.1 Allergy status to other antibiotic agents
CPT/HCPCS: G0463

== ENCOUNTER → 2020-07-16 | Outpatient (CLI) | payer MEDICARE, OTHER ==
[2013-11-18 18:15] VITALS: BP 106/67
[~2020-07-16] MED LIST changes: +BUPR150T21 PO; -BUPR150T6 PO; +HYOS0.1222 PO
--- NOTE | 2020-07-16 12:48 | PDOC ---
Progress Note - Pain Clinic Date of Service: DOS: DATE: 07/16/20 TIME: 12:42 Diagnosis: Dx: Complex regional pain syndrome type I left lower extremity Cervical radiculopathy with cervical degenerative disc disease History or Present Illness: HPI: 60-year-old female returns for follow-up status post medication management of methadone and tramadol as well as Lyrica and Zanaflex patient has been seeing the tramadol now and we reduced the methadone down to twice a day instead of 3 times a day. Patient reports he is doing very well with this is a pretty good reduction of pain with medications and no side effects at this time. Patient reports pain is been increasing however the base the neck and right upper extremity rating the right shoulder right upper extremity in the posterior deltoid posterior triceps also into the forearm both anteriorly posteriorly with some numbness and tingling in the right hand patient reports is worse with activity repetitive motions with the right upper extremity and weightbearing or reaching overhead repetitively. Patient rates her pain is a 10 on scale 10 is worse over the past week 7 on average 5 its least is a 7 today patient ports aching sharp dull tight shooting in the shoulder and arm also upper back mid back and low back with some pain in the left leg which is radiating can be constant and severe at times with weightbearing also on the left leg. Patient stimulator which she reports is doing well she is keeping a charge and is holding charge adequately. Patient reports about 20% improvement overall with the stimulator and about 50% improvement overall with the medications. Patient reports no new motor or sensory deficits no new bowel or bladder incontinence or other complaints. Patient is doing stretching exercises as well as taking anti-inflammatories which helps the right arm to some extent but only by about 20%. Physical Exam: VS: Blood pressure is 126/83 pulse 90 respirations 18 temperature 98.2 F height is 5 feet 3 inches weight is 221 pounds PE: PHYSICAL EXAMINATION: GENERAL: The patient is awake, alert, oriented, appropriate, very pleasant demeanor HEENT: Shows normocephalic, atraumatic. Extraocular movements are intact and symmetrical. Oral cavity: Mucous membranes moist and pink. Dentition is intact. NECK: Shows anterior throat supple without palpable lymphadenopathy noted. Swallow reflex symmetrical. CHEST: Shows normal on inspection. Breath sounds are clear bilaterally, no rales or rhonchi. HEART: Shows S1, S2 clear. No murmurs auscultated. ABDOMEN: Soft, nontender, nondistended, obese. No palpable organomegaly is noted. No rebound or guarding demonstrated. BACK: Shows spine grossly in the midline. Normal-appearing cervical lordotic curvature. There is slightly increased thoracic kyphosis, some minor flattening of the lumbar lordotic curvature. Lumbar paraspinous muscles show symmetrical on inspection, on palpation shows some moderate tenderness diffusely throughout the upper, middle and lower distribution of the paraspinous muscles without specific trigger points, without radiation of pain. The patient has good rotational motion of the lumbar spine, both laterally as well as extension and flexion without significant difficulty. No tenderness over the spinous process es, sacrum or sacroiliac regions. EXTREMITIES: Lower extremities show deep tendon reflexes 1+ in the patellar and tendo calcaneus tendons. Motor exam is 5 on a scale of 5 with right dorsiflexion, extension, quadriceps and hamstring flexion and 3/5 on the left. Peripheral pulses are 1+ posterior tibial. Patient's left lower extremity shows previous surgical scars on the anterior and lateral aspects of the ankle some slight bluish discoloration compared to the right foot but only mildly so patient shows only very mild edema in the left ankle but not the right which is pitting patient does have some allodynia over the anterior aspect of the left foot and into the anterior and medial aspect of the ankle but less so on the lateral aspect. Right foot shows normal range of motion no allodynia or edema. SKIN: Shows warm and dry, good turgor. No edema. No sores, rashes or bruising throughout. Procedure: Procedure: Options were discussed with patient. Patient chart was reviewed as her current medication regimen updated current review of systems updated today as well. We will refill patient's methadone at twice daily dosing as well as Zanaflex and Lyrica at 150 mg in the morning and 3 mg at night. Tramadol is discontinued. Patient has had appropriate K tracks reporting as well as appropriate urinalyses to date and we will make this a 90-day refill, with instructions and side effects to be aware of, discussed with each of the medications. Patient will have urinalysis done today as part of random screening. Also, we will preauthorize patient for cervical epidural steroid injections done very well with these in the past with increased radicular pain in the right upper extremity in a C6-7 dermatomal distribution. Patient will continue with anti- inflammatories as well as her pain medications and stretching and strength exercises as currently. Medication Injected: Med Injected: None Condition at Discharge: Condition at Discharge: Condition at discharge is stable. KENY MCCLENDON MD July 16, 2020 12:48
== END | disposition home or self-care (01) ==
LOC: PNCL 11:45
PROVIDERS: ATTEND Anesthesiology
DX: G90.522 Complex regional pain syndrome I of left lower limb (principal); M50.10 Cervical disc disorder with radiculopathy, unspecified cervical region; J44.9 Chronic obstructive pulmonary disease, unspecified; E66.9 Obesity, unspecified; E03.9 Hypothyroidism, unspecified; F32.9 Major depressive disorder, single episode, unspecified; Z90.49 Acquired absence of other specified parts of digestive tract; Z90.710 Acquired absence of both cervix and uterus; Z98.51 Tubal ligation status; Z98.890 Other specified postprocedural states; Z79.899 Other long term (current) drug therapy; Z88.0 Allergy status to penicillin; Z88.1 Allergy status to other antibiotic agents; Z88.8 Allergy status to other drugs, medicaments and biological substances
CPT/HCPCS: 99212; G0463

== ENCOUNTER → 2020-11-06 | Outpatient (CLI) | payer MEDICARE, OTHER ==
[2013-11-18 18:15] VITALS: BP 106/67
[~2020-11-06] MED LIST changes: +CYCL10TA19 PO; -CYCL10TA2 PO; +MAGN400T48 PO; -MAGN400T5 PO; +METH-572 PO; -METH10TA2 PO; +PREG150C PO; +TIZA-75 PO; -TIZA4TAB2 PO
--- NOTE | 2020-11-06 13:37 | PDOC ---
Progress Note - Pain Clinic Date of Service: DOS: DATE: 11/06/20 TIME: 13:17 Diagnosis: Dx: Complex regional pain syndrome type I left lower extremity Cervical radiculopathy with cervical degenerative disc disease Right sacroiliitis History or Present Illness: HPI: 60-year-old female returns for follow-up status post medication management with methadone and Lyrica. Patient reports he did very well with his very stable regimen has had appropriate K tracks report as well as appropriate urinalyses to date patient reports still significant pain in the low back now on the right posterior hip as well as the base of neck and shoulder specially the right upper extremity with pain radiating to the right arm and radicular fashion. Patient reports aching sharp shooting tingling burning stabbing radiating can be constant severe and unbearable rated as a 10 on scale 10 is worse over the past week 8 on average 7 at its least and is a 7 today. Patient reports no motor deficits in her left leg is doing fairly well with the spinal cord stimulator as well as with her Lyrica and methadone. Patient reports no side effects with the medications and overall about the 70% improvement with the medications themselves. Patient chief complaint however is the neck and right upper extremity with radicular pain as she had previously in the right arm in a cervical distribution. Patient reports is worse with lifting reaching doing repetitive motions or reaching forward with weightbearing and difficulty with sleeping as well. Patient reports it wakes him sleep about every 2-4 hours. Patient been doing therapy exercises stretching strengthening also take his oral analgesics as well as her narcotic medications to try to decrease the pain in the right arm as well. Physical Exam: VS: Blood pressure is 115/69 pulse 63 respirations 18 temperature is 98.3 F height is 5 feet 3 inches weight is 214 pounds PE: PHYSICAL EXAMINATION: GENERAL: The patient is awake, alert, oriented, appropriate, very pleasant in demeanor HEENT: Shows normocephalic, atraumatic. Extraocular movements are intact and symmetrical. Oral cavity: Mucous membranes moist and pink. Dentition is intact. NECK: Shows anterior throat supple without palpable lymphadenopathy noted. Swallow reflex symmetrical. CHEST: Shows normal on inspection. Breath sounds are clear bilaterally, distant no rales or rhonchi or wheezes. HEART: Shows S1, S2 clear. No murmurs auscultated. ABDOMEN: Soft, nontender, nondistended, obese. No palpable organomegaly is noted. BACK: Shows spine grossly in the midline. Normal-appearing cervical lordotic curvature. There is slightly increased thoracic kyphosis, some minor flattening of the lumbar lordotic curvature. Easily palpable spinal cord stimulator generator. Lumbar paraspinous muscles show symmetrical on inspection, on palpation shows some moderate tenderness diffusely throughout the upper, middle and lower distribution of the paraspinous muscles without specific trigger points, without radiation of pain. The patient has good rotational motion of the lumbar spine, both laterally as well as extension and flexion without significant difficulty. No tenderness over the spinous processes, sacrum or sacroiliac regions. EXTREMITIES: Lower extremities show deep tendon reflexes 1 in the patellar and tendo calcaneus tendons. Motor exam is 5 on a scale of 5 with right dorsiflexion, extension, quadriceps and hamstring flexion and 3/5 on the left. Peripheral pulses are 1+ posterior tibial. No peripheral edema is noted b ilaterally. Left lower extremity shows well-healed surgical scar on the top of the foot and ankle with some minor bluish discoloration and only very mild allodynia with light touch on the ankle mostly in the anterior aspect as well as the medial aspect but not into the lower leg and no edema present. SKIN: Shows warm and dry, good turgor. No edema. No sores, rashes or bruising throughout. Procedure: Procedure: Options were discussed with the patient. Patient chart reviews her current medication regimen updated current review of systems updated today as well. We will preauthorize patient for cervical epidural steroid injections as she did very well with these in the past, with pain returning in a radicular fashion following a C6-7 dermatomal distribution in the right arm. In the meantime, patient will continue with stretching strength exercises and therapy of the right upper extremity as well as oral analgesics and medications will be electronically prescribed methadone and Lyrica with instructions side effects aware with each of the medications discussed. Medication Injected: Med Injected: None Condition at Discharge: Condition at Discharge: Condition at discharge is stable. KENY MCCLENDON MD Nov 06, 2020 13:37
== END | disposition home or self-care (01) ==
LOC: PNCL 11:56
PROVIDERS: ATTEND Anesthesiology
DX: G90.522 Complex regional pain syndrome I of left lower limb (principal); M51.16 Intervertebral disc disorders with radiculopathy, lumbar region; M46.1 Sacroiliitis, not elsewhere classified; J44.9 Chronic obstructive pulmonary disease, unspecified; E66.9 Obesity, unspecified; E03.9 Hypothyroidism, unspecified; F32.9 Major depressive disorder, single episode, unspecified; Z98.51 Tubal ligation status; Z90.710 Acquired absence of both cervix and uterus; Z98.890 Other specified postprocedural states; Z79.899 Other long term (current) drug therapy
CPT/HCPCS: 99212; G0463

== ENCOUNTER → 2021-03-04 | Outpatient (CLI) | payer MEDICARE, OTHER ==
[2013-11-18 18:15] VITALS: BP 106/67
[~2021-03-04] MED LIST changes: +DULO20CA PO; +IOHEXOL 180 MG/ML 10 ML VIAL. ONE; +methylPREDNISolone ACETATE 40 MG/ML VIAL. ONE; +methylPREDNISolone ACETATE 80 MG/ML VIAL. ONE
--- NOTE | 2021-03-04 13:11 | PDOC ---
Progress Note - Pain Clinic Date of Service: DOS: DATE: 03/04/21 TIME: 13:06 Diagnosis: Dx: Cervical radiculopathy with cervical degenerative disc disease Right sacroiliitis Complex regional pain syndrome type I left lower extremity History or Present Illness: HPI: 60-year-old female returns for follow-up status post medication management with methadone and Lyrica patient reports she did very well with this with about a 7580% improvement is been try to decrease her use of methadone and is not quite due for refill although by dates that she is she is not used as much medication over the past 2 months that she had previously as she is trying to cut down. Patient reports still has significant pain in the low back and left foot with the complex regional pain syndrome but her chief complaint today is neck and shoulder pain bilateral upper extremities more on the right than the left radiating pain into the upper extremities she has had this for several months getting worse with activity reaching overhead with her right hand sleeping at night on her right side is waking her several times from sleep because of the neck and shoulder and right arm patient reports her pain is a 10 on scale 10 is worst 7 on average 5 its least is a 7 today described as sharp and shooting tingling burning stabbing can be radiating constant severe unbearable at times. Patient reports loss of motor function sniffing fatigability of the right arm but without dropping of any items. Physical Exam: VS: Blood pressure is 120/80 pulse 80 respirations 16 temperature 97.9 F weight is 220 pounds PE: PHYSICAL EXAMINATION: GENERAL: The patient is awake, alert, oriented, appropriate, very pleasant in demeanor HEENT: Shows normocephalic, atraumatic. Extraocular movements are intact and symmetrical. Oral cavity: Mucous membranes moist and pink. Dentition is intact. NECK: Shows anterior throat supple without palpable lymphadenopathy noted. Swallow reflex symmetrical. CHEST: Shows normal on inspection. Breath sounds are clear bilaterally, no rales rhonchi wheezes auscultated. HEART: Shows S1, S2 clear. No murmurs auscultated. ABDOMEN: Soft, nontender, nondistended, obese. No palpable organomegaly is noted. BACK: Shows spine grossly in the midline. Normal-appearing cervical lordotic curvature. Cervical paraspinous muscles show symmetrical inspection, on palpation some moderate tenderness diffusely bilaterally diffusely without significant radiation. Patient shows full rotation motion cervical spine with lateral as well as full extension full forward flexion. There is increased thoracic kyphosis, some flattening of the lumbar lordotic curvature with easily palpable spinal cord stimulator generator. Lumbar paraspinous muscles show symmetrical on inspection, on palpation shows some moderate tenderness diffusely throughout the upper, middle and lower distribution of the paraspinous muscles, but without specific trigger points, without radiation of pain. The patient has good rotational motion of the lumbar spine, both laterally as well as extension and flexion without significant difficulty. EXTREMITIES: Upper extremities show deep tendon reflexes 2+ in the bicep tricep tendons buffing wheel raker strength is strong with 5 out of 5 buffing wheel raker strength bicep and tricep flexion is equal and symmetrical. Shoulder shrug is strong intact without loss of strength on resistance. Lower extremities show deep tendon reflexes 1+ in the patellar and tendo calcaneus tendons. Motor exam is 5 on a scale of 5 with right dorsiflexion, extension, quadriceps and hamstring flexion and 3/5 on the left. Peripheral pulses are 1+ posterior tibial. No peripheral edema is noted bilaterally. Lower extremities are warm and dry. Patient's left foot shows significant bluish discoloration on the anterior aspect as well as well-healed surgical scarring with very significant allodynia on the anterior aspect of the ankle as well as the medial ankle and the top of the foot. Right side is nontender throughout. SKIN: Shows warm and dry, good turgor. No edema. No sores, rashes or bruising throughout. Procedure: Procedure: Options were discussed with the patient. Patient chart was reviewed as her current medication regimen updated review of systems updated today as well. We will proceed with a cervical epidural steroid injection today with fluoroscopic guidance. Risks were discussed including but not limited to: Bleeding, infection, possibility of epidural hematoma and subsequent neurological compromise, dural puncture, headaches, spinal cord and/or nerve damage, side effects of steroid medication, and poor results regarding pain control. Patient understands and wished to proceed. Patient will return to the clinic in approximately 4 weeks for follow-up, was counseled as return appointment, activity level, and side effect to be aware of. Medication Injected: Med Injected: Procedure cervical epidural steroid injection at the C6-7 level, using local anesthetic under sterile prep and drape using C-arm fluoroscopic guidance under local anesthesia medications injected ;120 mg Depo-Medrol +5 mL normal saline and 2 mL contrast; condition at discharge is stable patient tolerated procedure well. and had no complications Condition at Discharge: Condition at Discharge: Condition at discharge stable, patient tolerated procedure well and had no complications. KENY MCCLENDON MD Mar 04, 2021 13:11
--- NOTE | 2021-03-04 13:11 | PDOC4 ---
Procedure Note: ICD 10 Code: ICD 10 Code: M54.12 M50.30 Procedure Note: Patient was consented for cervical epidural steroid injection with fluoroscopic guidance. Risks were discussed including but not limited to: Bleeding, infection, possibility of epidural hematoma and subsequent neurological compromise, dural puncture, headaches, spinal cord and/or nerve damage, side effects of steroid medication, and poor results regarding pain control. Patient understands and wished to proceed. Procedure cervical epidural steroid injection at the C6-7 level, using local anesthetic under sterile prep and drape using C-arm fluoroscopic guidance under local anesthesia medications injected ;120 mg Depo-Medrol +5 mL normal saline and 2 mL contrast; condition at discharge is stable patient tolerated procedure well. and had no complications KENY MCCLENDON MD Mar 04, 2021 13:11
== END | disposition home or self-care (01) ==
LOC: PNCL 12:12
PROVIDERS: ATTEND Anesthesiology
DX: M50.10 Cervical disc disorder with radiculopathy, unspecified cervical region (principal); G90.522 Complex regional pain syndrome I of left lower limb; M46.1 Sacroiliitis, not elsewhere classified; M54.12 Radiculopathy, cervical region; J44.9 Chronic obstructive pulmonary disease, unspecified; E66.9 Obesity, unspecified; E03.9 Hypothyroidism, unspecified; F32.9 Major depressive disorder, single episode, unspecified; Z90.710 Acquired absence of both cervix and uterus; Z98.51 Tubal ligation status; Z98.890 Other specified postprocedural states; Z79.899 Other long term (current) drug therapy; Z87.891 Personal history of nicotine dependence; Z88.0 Allergy status to penicillin; Z88.1 Allergy status to other antibiotic agents; Z88.8 Allergy status to other drugs, medicaments and biological substances
CPT/HCPCS: 62321; J1030; J1040; Q9965

== ENCOUNTER → 2021-03-27 | Outpatient (CLI) | payer MEDICARE ==
[2013-11-18 18:15] VITALS: BP 106/67
[~2021-03-27] MED LIST changes: -IOHEXOL 180 MG/ML 10 ML VIAL. ONE; +METH-570 PO; -methylPREDNISolone ACETATE 40 MG/ML VIAL. ONE; -methylPREDNISolone ACETATE 80 MG/ML VIAL. ONE
--- NOTE | 2021-03-27 12:42 | PDOC ---
Progress Note - Pain Clinic Date of Service: DOS: DATE: 03/27/21 TIME: 12:40 Diagnosis: Dx: Complex regional pain syndrome left lower extremity Cervical radiculopathy with cervical degenerative disc disease Right sacroiliitis History or Present Illness: HPI: Telemedicine visit today with patient's identity verified with full date of as well as full name, total time spent, 12 minutes 60-year-old female via telemedicine visit today requesting refill of methadone. Patient has been on very stable regimen with methadone and has not had any side effects with medication reports about a 70% improvement with the medication overall. Patient reports she is decreased the amount that she is been taking and with only requesting twice daily dosing were previously was 3 times daily and we have reduced this to just twice daily now. Patient reports still doing fairly well with good control of the pain complains of pain in the back and the lower extremity on the left side also reports that her spinal cord stimulator has stopped working twice over the past week she had to restart it and is having to charge it frequently. We discussed replacing her stimulator generator however she is getting some things in order with her finances and travel needs currently and we will look at this when these are solved. Patient has had appropriate K tracks reporting and appropriate urinalyses to date as well. We will electronically prescribe his methadone and patient was given instructions well side effects to be aware of with the medication. Patient will follow up in approximately 30 days as scheduled. Physical Exam: PE: KENY MCCLENDON MD Mar 27, 2021 12:42
--- NOTE | 2021-03-27 13:13 | NUR ---
Pt called clinic requesting refill on her Methadone. States pain level is averaging 7-8/10. Pt states no new health issues or change in medications. Pharmacy and next clinic appt. verified. Denies constipation issues. Pt transferred to Dr. Velazquez to complete phone visit and escrg. Jeanie Rey RN
== END | disposition home or self-care (01) ==
LOC: PNCL 12:33
PROVIDERS: ATTEND Anesthesiology
DX: G90.522 Complex regional pain syndrome I of left lower limb (principal); M50.10 Cervical disc disorder with radiculopathy, unspecified cervical region; M46.1 Sacroiliitis, not elsewhere classified; J44.9 Chronic obstructive pulmonary disease, unspecified; E66.9 Obesity, unspecified; E03.9 Hypothyroidism, unspecified; F32.9 Major depressive disorder, single episode, unspecified; Z90.49 Acquired absence of other specified parts of digestive tract; Z98.51 Tubal ligation status; Z90.710 Acquired absence of both cervix and uterus; Z98.890 Other specified postprocedural states; Z79.899 Other long term (current) drug therapy
CPT/HCPCS: 99212; G0463

== ENCOUNTER → 2021-05-30 | Outpatient (CLI) | payer MEDICARE ==
[2013-11-18 18:15] VITALS: BP 106/67
--- NOTE | 2021-05-30 10:00 | PDOC ---
Progress Note - Pain Clinic Date of Service: DOS: DATE: 05/30/21 TIME: 09:51 Diagnosis: Dx: Complex regional pain syndrome type I left lower extremity Cervical radiculopathy with cervical degenerative disc disease Right sacroiliitis History or Present Illness: HPI: 61-year-old female returns for follow-up status post medication management as well as spinal cord stimulator therapy and cervical epidural steroid injections patient reports while the injections helped did not last very long that she has been managed very consistently with methadone and Lyrica as well as tramadol for breakthrough pain patient reports her spinal cord stimulator is starting to not charge as well as it had in the past and is becoming longer to charge it and is discharging more quickly with use but still has good coverage in the left lower extremity with the stimulator although it has only about a 50% improvement currently. Patient reports no motor or sensory deficit changes still significant pain in the left leg and foot especially with limited mobility patient using a wheelchair at most times for ambulation patient rates her pain is a 10 on scale 10 is worse over the past week 9 on average 8 its least is an 8 today patient reports that it is sharp and tight in the foot shooting in the leg tingling and burning in the left foot as well can be radiating constant and severe at times as well with changing positions and weightbearing Patient reports no side effects with the medication and overall about a 70% improvement with the medications alone. Patient has had appropriate K tracks report as well as appropriate urinalyses as well to date. We will draw urinalysis today as part of routine screening as well. Physical Exam: VS: Blood pressure is 136/68 pulse 76 respirations 18 temperature 98.1 F height and weight deferred per patient request that she is in her wheelchair. PE: PHYSICAL EXAMINATION: GENERAL: The patient is awake, alert, oriented, appropriate, very pleasant in demeanor HEENT: Shows normocephalic, atraumatic. Extraocular movements are intact and symmetrical. Oral cavity: Mucous membranes moist and pink. Dentition is intact. NECK: Shows anterior throat supple without palpable lymphadenopathy noted. Swallow reflex symmetrical. CHEST: Shows normal on inspection. Breath sounds are clear bilaterally, distant but no rales or rhonchi auscultated. HEART: Shows S1, S2 clear. No murmurs auscultated. ABDOMEN: Soft, nontender, nondistended. No palpable organomegaly is noted. BACK: Shows spine grossly in the midline. Normal-appearing cervical lordotic curvature. There is moderate increased thoracic kyphosis, some flattening of the lumbar lordotic curvature, with well-healed surgical scar and easily palpable spinal cord stimulator generator. Lumbar paraspinous muscles show symmetrical on inspection, on palpation shows some moderate tenderness diffusely throughout the upper, middle and lower distribution of the paraspinous muscles, but without specific trigger points, without radiation of pain. The patient has good rotational motion of the lumbar spine, both laterally as well as extension and flexion without significant difficulty. No tenderness over the spinous processes, sacrum or sacroiliac regions. EXTREMITIES: Lower extremities show deep tendon reflexes 1 in the patellar and tendo calcaneus tendons. Motor exam is 4 on a scale of 5 with right dorsiflexion, extension, quadriceps and hamstring flexion and 3/5 on the left. Peripheral pulses are 1+ posterior tibial. 1+ left peripheral edema is noted. Lower extremities are warm and dry to touch. Left leg shows significant allodynia over the ankle anteriorly posteriorly as well as medially and laterally in the anterior aspect of the foot with well-healed surgical scar on the top of the foot as well less discoloration as on previous exam but still purple hue to the anterior and plantar surface of the foot with significant tenderness of the plantar surface even with light touch on the left side only. Patient shows limited extension and flexion of the ankle but good lateral and medial rotation of the ankle on the left right side shows full range without difficulty. SKIN: Shows warm and dry, good turgor. No edema. No sores, rashes or bruising throughout. Procedure: Procedure: Options discussed with patient. Patient's old chart was viewed as her current medication regimen updated current review of systems updated today as well. We will refill patient's medication methadone as well as tramadol and Lyrica patient was given instructions as well as side effects aware of each of the medications. Patient will follow up in approximately 30 days as scheduled. Once again, patient has had appropriate K tracks report as well as appropriate urinalyses to date and will have urinalysis taken today as part of routine screening. Medication Injected: Med Injected: None Condition at Discharge: Condition at Discharge: Condition at discharge is stable. KENY MCCLENDON MD May 30, 2021 10:00
== END | disposition home or self-care (01) ==
LOC: PNCL 08:54
PROVIDERS: ATTEND Anesthesiology
DX: G90.522 Complex regional pain syndrome I of left lower limb (principal); M50.10 Cervical disc disorder with radiculopathy, unspecified cervical region; M46.1 Sacroiliitis, not elsewhere classified; J44.9 Chronic obstructive pulmonary disease, unspecified; E66.9 Obesity, unspecified; E03.9 Hypothyroidism, unspecified; F32.9 Major depressive disorder, single episode, unspecified; Z90.49 Acquired absence of other specified parts of digestive tract; Z98.51 Tubal ligation status; Z98.890 Other specified postprocedural states; Z87.891 Personal history of nicotine dependence; Z79.899 Other long term (current) drug therapy; Z88.0 Allergy status to penicillin; Z88.1 Allergy status to other antibiotic agents; Z88.8 Allergy status to other drugs, medicaments and biological substances
CPT/HCPCS: 99212; G0463

== ENCOUNTER → 2021-07-24 | Outpatient (CLI) | payer MEDICARE ==
[2013-11-18 18:15] VITALS: BP 106/67
[~2021-07-24] MED LIST changes: +SOLI10TA2 PO
--- NOTE | 2021-07-24 14:33 | PDOC ---
Progress Note - Pain Clinic Date of Service: DOS: DATE: 07/24/21 TIME: 14:30 Diagnosis: Dx: Complex regional pain syndrome type I left lower extremity Cervical radiculopathy cervical degenerative disc disease History or Present Illness: HPI: Telemedicine visit today with patient standing verified with full name as well as full date of , total time spent 14 minutes, telephone voice only 61-year-old female via telemedicine visit today requesting refill of methadone 10 mg 1 tablet twice daily. Patient reports he is doing very well has been on very stable regimen also taking Lyrica which is helpful with the complex regional pain syndrome also has spinal cord stimulator which is helpful as well patient reports is working well batteries charging adequately and has good cove rage although it is about only 50% improvement with the stimulator itself. Patient reports with the methadone and she has no side effects and the medication is decreasing her pain by additional 20 to 30% for overall 70% improvement. Patient reports no side effects patient has had appropriate K tracks report as well as appropriate urinalyses to date as well. We discussed options and will refill patient's medication electronically with instructions side effects to be aware of discussed. Patient has had appropriate K tracks report as well as appropriate urinalyses to date as well. Patient will follow up in approximately 30 days as scheduled. Physical Exam: PE: KENY MCCLENDON MD July 24, 2021 14:33
== END | disposition home or self-care (01) ==
LOC: PNCL 14:28
PROVIDERS: ATTEND Anesthesiology
DX: G90.522 Complex regional pain syndrome I of left lower limb (principal); M50.10 Cervical disc disorder with radiculopathy, unspecified cervical region; J44.9 Chronic obstructive pulmonary disease, unspecified; E66.9 Obesity, unspecified; E03.9 Hypothyroidism, unspecified; F32.9 Major depressive disorder, single episode, unspecified; Z98.51 Tubal ligation status; Z90.710 Acquired absence of both cervix and uterus; Z98.890 Other specified postprocedural states; Z88.0 Allergy status to penicillin; Z88.1 Allergy status to other antibiotic agents
CPT/HCPCS: 99212; G0463